=== PATIENT | male | born 1965 | race Hispanic/Latino ===

== ENCOUNTER 2017-07-18 12:41 | Emergency (ER) | payer OTHER ==
[2017-07-18 13:04] VITALS: BMI 30.1
[2017-07-18 13:28] VITALS: RESP 18; O2SAT 98
--- NOTE | 2017-07-18 13:30 | ED PDOC ---
Arrival/HPI <Katelynn Thompson - Last Filed: 07/18/17 17:11> <Vijay Messina DO - Last Filed: 07/18/17 21:48> - General Chief Complaint: High Blood Sugar Time Seen by Provider: 07/18/17 12:43 - History of Present Illness Narrative History of Present Illness (Text): 07/18/17 13:28 Patient is a 52 year old male with a past medical history of HTN, arthritis, anxiety, and depression, who presents to the ER complaining of hyperglycemia since last (7 days). Patient says he has been feeling irritable and fatigued since last week so his friend, who is a known diabetic, told him to check his blood sugar with his friends machine. Patient says it was 549 and he documented this along with all the other levels he has had since then. Patient says he was taking his sugar either before eating or 2 hours after and found that is was running anywhere between 300-500. Patient says his father and grandmother were diabetics and used insulin, so he is worried he might have it too. Of note, he saw his PCP in April of this year and was told his sugar was high so he needed to make dietary modifications. Patient says he "cut out some sugary foods" after that. Patient started taking some of his friend's diabetic medications, which he says are pills, but he does not know the name of them. Patient admits to associated chest pain radiating to his left shoulder that he has had on and off for 2 weeks, as well as frontal headache, occasional SOB, nausea, polydipsia, polyuria, dizziness, and blurry vision. PCP: no longer has one due to insurance reasons and his doctor left [facility] PMH: HTN, Arthritis, Depression, Anxiety Meds: - Xanax 0.5 mg once daily as needed - Lisinopril 20 mg once daily - HCTZ 25 mg once daily Allergies: NKDA PSH: denies FH: father and grandmother with IDDM, mother with HTN SH: smokes 1 PPD >40 years, social alcohol use, denies elicit drug use; works as a carpenter helper hardwood flooring (Katelynn Thompson) Family/Social History Family/Social History: Diabetes, Hypertension <Katelynn Thompson - Last Filed: 07/18/17 17:11> Allergies/Home Meds <Katelynn Thompson - Last Filed: 07/18/17 17:11> <Vijay Messina DO - Last Filed: 07/18/17 21:48> Allergies/Adverse Reactions: Allergies No Known Allergies Allergy (Verified 07/18/17 13:03) Review of Systems - Physician Review All systems were reviewed & negative as marked: Yes - Review of Systems Constitutional: Fatigue. absent: Fevers Eyes: Vision Changes (blurry vision) ENT: absent: Hearing Changes, Tinnitus Respiratory: SOB. absent: Cough, Sputum, Wheezing Cardiovascular: Chest Pain. absent: Palpitations, Edema, Syncope Gastrointestinal: Nausea. absent: Abdominal Pain, Constipation, Diarrhea, Vomiting Genitourinary Male: Frequency. absent: Dysuria, Hematuria Musculoskeletal: Arthralgias (history of arthritis) Skin: absent: Rash Neurological: Headache (frontal), Dizziness Endocrine: Polyuria, Polydipsia. absent: Diaphoresis Psychiatric: Anxiety (h/o), Depression (h/o) <Katelynn Thompson - Last Filed: 07/18/17 17:11> Physical Exam Vital Signs Reviewed: Yes Temperature: Afebrile Blood Pressure: Normal Pulse: Regular Respiratory Rate: Normal Appearance: Positive for: Well-Appearing, Non-Toxic, Comfortable, Other ( fatigued) Pain Distress: None Mental Status: Positive for: Alert and Oriented X 3 Finger Stick Blood Glucose: 395 - Systems Exam Head: Present: Atraumatic, Normocephalic Pupils: Present: PERRL Extroacular Muscles: Present: EOMI Conjunctiva: Present: Normal Mouth: Present: Moist Mucous Membranes Neck: Present: Normal Range of Motion. No: JVD Respiratory/Chest: Present: Clear to Auscultation, Good Air Exchange. No: Respiratory Distress, Accessory Muscle Use Cardiovascular: Present: Regular Rate and Rhythm, Normal S1, S2. No: Murmurs, Rub, Gallop Abdomen: Present: Normal Bowel Sounds. No: Tenderness, Distention, Peritoneal Signs Upper Extremity: Present: Normal Inspection, Neurovascularly Intact. No: Cyanosis, Edema Lower Extremity: Present: Normal Inspection, Neurovascularly Intact. No: Edema , CALF TENDERNESS Neurological: Present: GCS=15, Speech Normal Skin: Present: Warm, Dry, Normal Color. No: Rashes Psychiatric: Present: Alert, Oriented x 3, Normal Insight, Normal Concentration <Katelynn Thompson - Last Filed: 07/18/17 17:11> Vital Signs Temp Pulse Resp BP Pulse Ox 07/18/17 17:00 98 F 72 18 139/89 98 07/18/17 16:14 76 18 118/69 98 07/18/17 13:27 97.5 F L 83 18 128/70 98 Medical Decision Making <Katelynn Thompson - Last Filed: 07/18/17 17:11> <Vijay Messina DO - Last Filed: 07/18/17 21:48> ED Course and Treatment: 07/18/17 13:54 Plan: -CBC, CMP -ECG -Cardiac Enzymes -CXR -VBG -UA -NS 500 cc bolus -Reassess and disposition Plan discussed with Dr. Messina 07/18/17 13:56 EKG: NSR @79 bpm, RBBB 07/18/17 13:59 CXR: normal chest XR as read by me; will follow up official read 07/18/17 17:11 Patient not in DKA. Will send home with prescription for Metformin 500 mg daily with instruction to follow up with PCP. (Katelynn Thompson) - Lab Interpretations Lab Results: 07/18/17 14:17 07/18/17 14:17 Lab Results 07/18/17 16:35: POC Glucose (mg/dL) 379 H 07/18/17 14:34: Urine Color Yellow, Urine Appearance Clear, Urine pH 6.0, Ur Specific [place] 1.010, Urine Protein Negative, Urine Glucose (UA) >=1000, Urine Ketones 40 H, Urine Blood Negative, Urine Nitrate Negative, Urine Bilirubin Negative, Urine Urobilinogen 0.2, Ur Leukocyte Esterase Negative 07/18/17 14:17: Sodium 134, Chloride 95 L, Potassium 3.6, Carbon Dioxide 21, Anion Gap 22 H, BUN 31 H, Creatinine 1.1, Est GFR ( Amer) > 60, Est GFR ( Non-Af Amer) > 60, Random Glucose 474 H*, Calcium 9.9, Total Bilirubin 0.8, AST 15 L, ALT 35, Alkaline Phosphatase 111, Lactate Dehydrogenase 257 L, Total Creatine Kinase 39, Troponin I < 0.01, Total Protein 6.8, Albumin 4.2, Globulin 2.6, Albumin/Globulin Ratio 1.7 07/18/17 14:17: WBC 9.2, RBC 4.42, Hgb 14.1, Hct 39.2 L, MCV 88.7, MCH 31.9, MCHC 36.0, RDW 12.5, Plt Count 282, MPV 10.3, Gran % 70.5 H, Lymph % (Auto) 18.0 L, [place] % (Auto) 10.5 H, Eos % (Auto) 0.9 L, Baso % (Auto) 0.1, Gran # 6.51 H, Lymph # (Auto) 1.7, [place] # (Auto) 1.0 H, Eos # (Auto) 0.1, Baso # (Auto ) 0.01 07/18/17 14:17: pO2 92 H, VBG pH 7.43, VBG pCO2 33.0 L, VBG HCO3 21.9, VBG Total CO2 22.9, VBG O2 Sat (Calc) 99.0 H, VBG Base Excess -1.7 L, VBG Potassium 3.5 L, Sodium 132.0, Chloride 96.0 L, Glucose 508 H*, Lactate 1.1, FiO2 21.0, Venous Blood Potassium 3.5 L 07/18/17 12:58: POC Glucose (mg/dL) 394 H - RAD Interpretation Radiology Orders: 07/18/17 13:18 CHEST PORTABLE [RAD] Stat - Medication Orders Current Medication Orders: Discontinued Medications Sodium Chloride (Sodium Chloride 0.9%) 500 mls @ 999 mls/hr IV .Q31M STA Stop: 07/18/17 14:01 Last Admin: 07/18/17 14:15 Dose: 999 mls/hr eMAR Start Stop Document 07/18/17 14:15 [facility] (Rec: 07/18/17 14:15 [facility]-[id number]) Intravenous Solution Start Date 07/18/17 Start Time 14:15 End Date 07/18/17 End time 15:15 Total Infusion Time 60 Sodium Chloride (Sodium Chloride 0.9%) 1,000 mls @ 250 mls/hr IV .Q4H ONE Stop: 07/18/17 18:12 Last Admin: 07/18/17 15:12 Dose: 250 mls/hr eMAR Start Stop Document 07/18/17 15:12 [facility] (Rec: 07/18/17 15:12 [facility] [id number]) Intravenous Solution Start Date 07/18/17 Start Time 15:12 Metformin HCl (Glucophage) 500 mg PO STAT STA Stop: 07/18/17 14:40 Last Admin: 07/18/17 15:12 Dose: 500 mg - PA / PROPOSAL COORDINATOR / Resident Statement / has reviewed & agrees with the documentation as recorded. / has examined the patient and agrees with the treatment plan. <Katelynn Thompson - Last Filed: 07/18/17 17:11> Disposition/Present on Arrival - Present on Arrival Any Indicators Present on Arrival: No - Disposition Have Diagnosis and Disposition been Completed?: Yes Disposition Time: 17:12 <Katelynn Thompson - Last Filed: 07/18/17 17:11> - Disposition Disposition Time: 15:00 <Vijay Messina DO - Last Filed: 07/18/17 21:48> - Disposition Diagnosis: Hyperglycemia Disposition: HOME/ ROUTINE Condition: IMPROVED Discharge Instructions (ExitCare): Hyperglycemia, Adult, The ABCs of Diabetes, Diabetes and Diet Additional Instructions: Thank you for letting us take care of you today. The emergency medical care you received today was directed at your acute symptoms. If you were prescribed any medication, please fill it and take as directed. It may take several days for your symptoms to resolve. Return to the Emergency Department if your symptoms worsen, do not improve, or if you have any other problems. Please contact your doctor or call one of the physicians/clinics you have been referred to that are listed on the Patient Visit Information form that is included in your discharge packet. Bring any paperwork you were given at discharge with you along with any medications you are taking to your follow up visit. Our treatment cannot replace ongoing medical care by a primary care provider (PCP) outside of the emergency department. Thank you for allowing the [facility] team to be part of your care today. Follow up with your primary care doctor or our clinic in 2-3 days for re- evaluation and further management. Prescriptions: metFORMIN [glucOPHAGE] 500 mg PO BID #14 tab Referrals: PCP,NO [Primary Care Provider] - Follow up with primary Forms: No Chains (Spanish)
[2017-07-18] MEDS ORDERED: Sodium Chloride 0.9% 500 ML IV STA (13:31)
--- NOTE | 2017-07-18 14:03 | RAD ---
HISTORY: chest pain COMPARISON: None available FINDINGS: LUNGS: No active pulmonary disease. PLEURA: No significant pleural effusion identified, no pneumothorax apparent. CARDIOVASCULAR: Normal. OSSEOUS STRUCTURES: No significant abnormalities. VISUALIZED UPPER ABDOMEN: Normal. OTHER FINDINGS: None. IMPRESSION: No active disease.
[2017-07-18] MEDS ORDERED: Sodium Chloride 0.9% 1,000 ML IV ONE (14:13)
[2017-07-18 14:21] LABS: VENOUS BLOOD GAS BASE EXCESS -1.7 mmol/L (0.0-2.0); VENOUS BLOOD GAS PO2 92 mm/Hg (30-55); VENOUS BLOOD PH 7.43 (7.32-7.43)
[2017-07-18 14:23] LABS: BASO # 0.01 K/mm3 (0.0-2.0); BASO % 0.1 % (0.0-3.0); EOS # 0.1 (0.0-0.7); EOS % 0.9 % (1.5-5.0); GRAN # 6.51 (1.4-6.5); GRAN % 70.5 % (50.0-68.0); HEMOGLOBIN 14.1 g/dL (14.0-18.0); LYMPH # 1.7 (1.2-3.4); MEAN CELL VOLUME 88.7 fl (80.0-105.0); MEAN CORPUSCULAR HEMOGLOBIN 31.9 pg (25.0-35.0); MEAN PLATELET VOLUME 10.3 fl (7.0-11.0); MONO % 10.5 % (1.0-6.0); RBC 4.42 10^6/uL (3.5-6.1); RED CELL DISTRIBUTION WIDTH 12.5 % (11.5-14.5); WHITE BLOOD COUNT 9.2 10^3/ul (4.5-11.0)
[2017-07-18 14:41] LABS: ALB/GLOB RATIO 1.7 (1.1-1.8); ALBUMIN 4.2 g/dL (3.0-4.8); ALT/SGPT 35 U/L (7-56); AST/SGOT 15 U/L (17-59); BLOOD UREA NITROGEN 31 mg/dL (7-21); CALCIUM 9.9 mg/dL (8.4-10.5); GFR AFRICAN-AMERICAN > 60; GFR NON-AFRICAN AMERICAN > 60
[2017-07-18 14:44] LABS: TROPONIN I < 0.01 ng/mL
[2017-07-18 15:01] LABS: URINE BILIRUBIN NEGATIVE (NEGATIVE); URINE BLOOD NEGATIVE (NEGATIVE); URINE GLUCOSE (UA) >=1000 mg/dL (NEGATIVE); URINE LEUKOCYTE ESTERASE NEGATIVE Leu/uL (NEGATIVE); URINE PROTEIN NEGATIVE mg/dL (<30 mg/dL); URINE UROBILINOGEN 0.2 E.U./dL (<1 E.U./dL)
[2017-07-18 15:04] LABS: URINE APPEARANCE CLEAR (CLEAR); URINE COLOR YELLOW (YELLOW)
[2017-07-18 17:32] VITALS: BP 139/89; PULSE 72; TEMP 98
--- NOTE | 2017-07-18 22:35 | CARD ---
APPROVED REPORT EKG Measurement Heart [id number] <Conclusion> Normal sinus rhythm Right bundle branch block Abnormal ECG
== END 2017-07-18 17:05 | disposition home or self-care (01) ==
LOC: ED 12:41
DX: R73.9 Hyperglycemia, unspecified (principal); I10 Essential (primary) hypertension; M19.90 Unspecified osteoarthritis, unspecified site; F17.210 Nicotine dependence, cigarettes, uncomplicated
CPT/HCPCS: 71045; 80053; 81003; 82550; 82803; 82948; 83036; 83615; 84484; 85025; 93005; 96360; 99284; J7030; J7040

== ENCOUNTER 2017-12-13 20:58 | Emergency (ER) | payer OTHER ==
[2017-12-13 20:58] VITALS: BMI 30.1
--- NOTE | 2017-12-13 22:39 | ED PDOC ---
Arrival/HPI - General Chief Complaint: Psychiatric Evaluation Time Seen by Provider: 12/13/17 21:37 Historian: Patient - History of Present Illness Narrative History of Present Illness (Text): 12/13/17 22:39 Wilian Duff is a 52 year old male, whose past medical history includes hypertension, arthritis, anxiety, and depression, who presents to the Emergency department for depression. Patient states he has been feeling increasingly depressed over the past few weeks. Patient reports suicidal ideation, states he wants to kill himself and admits to taking 6-7 Xanax tablets tonight. Patient also admits to drinking alcohol tonight. Patient denies any homicidal ideation, fever, chills, chest pain, shortness of breath, nausea, vomiting, diarrhea, urinary symptoms, back pain, neck pain, headache, dizziness, or any other complaints. Symptom Onset: Gradual Symptom Course: Unchanged Activities at Onset: Light Context: Home Past Medical History - Provider Review Nursing Documentation Reviewed: Yes - Infectious Disease Hx of Infectious Diseases: None - Cardiac Hx Cardiac Disorders: Yes Hx Hypertension: Yes - Musculoskeletal/Rheumatological Hx Musculoskeletal Disorders: Yes Hx Arthritis: Yes - Psychiatric Hx Psychophysiologic Disorder: Yes Hx Anxiety: Yes Hx Depression: Yes Hx Substance Use: No - Anesthesia Hx Anesthesia: No Family/Social History - Physician Review Nursing Documentation Reviewed: Yes Family/Social History: Unknown Family HX Smoking Status: Heavy Smoker > 10 Cigarettes Daily Hx Alcohol Use: Yes Hx Substance Use: No Allergies/Home Meds Allergies/Adverse Reactions: Allergies No Known Allergies Allergy (Verified 12/13/17 21:11) Review of Systems - Physician Review All systems were reviewed & negative as marked: Yes - Review of Systems Constitutional: Normal. absent: Fevers Eyes: Normal ENT: Normal Respiratory: Normal. absent: SOB, Cough Cardiovascular: Normal. absent: Chest Pain Gastrointestinal: Normal. absent: Abdominal Pain, Diarrhea, Nausea, Vomiting Genitourinary Male: Normal. absent: Dysuria, Frequency, Hematuria, Urinary Output Changes Musculoskeletal: Normal. absent: Back Pain, Neck Pain Skin: Normal. absent: Rash Neurological: Normal. absent: Headache, Dizziness Endocrine: Normal Hemo/Lymphatic: Normal Psychiatric: Depression, Suicidal Ideation Physical Exam Vital Signs Reviewed: Yes Vital Signs Temp Pulse Resp BP Pulse Ox 12/13/17 21:10 98 F 89 20 169/93 H 96 Temperature: Afebrile Blood Pressure: Normal Pulse: Regular Respiratory Rate: Normal Appearance: Positive for: Well-Appearing, Non-Toxic Mental Status: Positive for: other (Drowsy but easily arousable) - Systems Exam Head: Present: Atraumatic, Normocephalic Pupils: Present: PERRL Extroacular Muscles: Present: EOMI Conjunctiva: Present: Normal Mouth: Present: Moist Mucous Membranes Neck: Present: Normal Range of Motion Respiratory/Chest: Present: Clear to Auscultation, Good Air Exchange. No: Respiratory Distress, Accessory Muscle Use Cardiovascular: Present: Regular Rate and Rhythm, Normal S1, S2. No: Murmurs Abdomen: No: Tenderness, Distention, Peritoneal Signs Back: Present: Normal Inspection Upper Extremity: Present: Normal Inspection. No: Cyanosis, Edema Lower Extremity: Present: Normal Inspection. No: Edema Neurological: Present: GCS=15, CN II-XII Intact, Speech Normal Skin: Present: Warm, Dry, Normal Color. No: Rashes Psychiatric: Present: Depressed Mood, Other (Drowsy but easily arousable) Medical Decision Making ED Course and Treatment: 12/13/17 21:55 Impression: 52 year old male complaining of depression and suicidal ideation. Plan: -- EKG -- Chest X-ray -- Labs, alcohol level -- Urine drug screen -- Reassess and disposition Prior Visits: Notes and results from previous visits were reviewed. Progress Notes: Reviewed EKG, NSR at 96 bpm. RBBB. Inferior infarct. Non-specific ST/T wave changes. 12/14/17 00:19 Chest X-ray reviewed, shows no acute processes. 12/14/17 05:30 Attempt to interview patient by PES unsuccessful at the time as patient refused wanting to sleep. 12/14/17 07:[address] Parra, pending PES evaluation, reassessment, and disposition - Lab Interpretations I have reviewed the lab results: Yes - RAD Interpretation Radiology Orders: 12/13/17 21:58 CHEST PORTABLE [RAD] Stat Supplier Manager: ED Physician - EKG Interpretation Interpreted by ED Physician: Yes Type: 12 lead EKG - Scribe Statement The provider has reviewed the documentation as recorded by the Saad Samayoa Provider Scribe Attestation: All medical record entries made by the Scribe were at my direction and personally dictated by me. I have reviewed the chart and agree that the record accurately reflects my personal performance of the history, physical exam, medical decision making, and the department course for this patient. I have also personally directed, reviewed, and agree with the discharge instructions and disposition. Disposition/Present on Arrival - Present on Arrival Any Indicators Present on Arrival: No History of DVT/PE: No History of Uncontrolled Diabetes: No Urinary Catheter: No History of Decub. Ulcer: No History Surgical Site Infection Following: None - Disposition Have Diagnosis and Disposition been Completed?: No Diagnosis: Depression, Drug overdose Disposition Time: 07:00 Condition: STABLE Forms: [employer] (Turkmen)
[2017-12-13 23:25] LABS: ACETAMINOPHEN < 10.0 ug/ml (10.0-20.0); SALICYLATE < 1 mg/dL (2.0-20.0)
[2017-12-13 23:26] LABS: ALB/GLOB RATIO 1.6 (1.1-1.8); ALBUMIN 4.6 g/dL (3.0-4.8); ALT/SGPT 22 U/L (7-56); AST/SGOT 23 U/L (17-59); BLOOD UREA NITROGEN 25 mg/dL (7-21); CALCIUM 9.5 mg/dL (8.4-10.5); GFR NON-AFRICAN AMERICAN > 60
[2017-12-13 23:33] LABS: HEMOGLOBIN 14.2 g/dL (14.0-18.0); MEAN CELL VOLUME 90.6 fl (80.0-105.0); MEAN CORPUSCULAR HEMOGLOBIN 31.8 pg (25.0-35.0); MEAN CORPUSCULAR HGB CONC 35.1 g/dl (31.0-37.0); RBC 4.46 10^6/uL (3.5-6.1); WHITE BLOOD COUNT 13.6 10^3/uL (4.5-11.0)
--- NOTE | 2017-12-14 05:54 | RAD ---
Date of service: 12/13/2017 HISTORY: medical clearance COMPARISON: 07/18/2017. FINDINGS: LUNGS: The lungs are well inflated and clear. PLEURA: No pleural effusions or pneumothorax. CARDIOVASCULAR: The heart is normal in size. No aortic atherosclerotic calcification present. OSSEOUS STRUCTURES: Within normal limits for the patient's age. VISUALIZED UPPER ABDOMEN: Normal. OTHER FINDINGS: None. IMPRESSION: No active pulmonary disease.
[2017-12-14 06:58] LABS: BARBITURATES, UR NEGATIVE (NEGATIVE); BENZODIAZEPINES, UR POSITIVE (NEGATIVE); OPIATES, UR NEGATIVE (NEGATIVE); PHENCYCLIDINE, UR NEGATIVE (NEGATIVE)
--- NOTE | 2017-12-14 10:25 | RAD ---
Date of service: 12/14/2017 HISTORY: pes eval COMPARISON: 12/13/2017. FINDINGS: LUNGS: The lungs are well inflated and clear. PLEURA: No pleural effusions or pneumothorax. CARDIOVASCULAR: The heart is normal in size. No aortic atherosclerotic calcification present. OSSEOUS STRUCTURES: Within normal limits for the patient's age. VISUALIZED UPPER ABDOMEN: Normal. OTHER FINDINGS: None. IMPRESSION: No active pulmonary disease.
--- NOTE | 2017-12-14 10:40 | CARD ---
APPROVED REPORT Date of service: 12/13/2017 EKG Measurement Heart [id number] <Conclusion> Normal sinus rhythm Right bundle branch block Inferior infarct, old No change
--- NOTE | 2017-12-14 11:02 | ED PDOC ---
Physical Exam Vital Signs Temp Pulse Resp BP Pulse Ox 12/14/17 09:45 98 F 86 19 130/85 97 12/14/17 03:11 91 H 18 107/66 97 12/13/17 21:10 98 F 89 20 169/93 H 96 Medical Decision Making ED Course and Treatment: 12/14/17 07:02 Case endorsed to me by Dr. Ahumada. Currently pending PES evaluation, reassessment, and disposition. 12/14/17 11:01 Patient is medically cleared. 12/15/17 07:21 pt enorsed to fast food shift supervisor pending [facility] [place] pt observed numerous times ambulatory steady gait taking po in nad. 12/15/17 07:21 - Lab Interpretations Lab Results: 12/13/17 23:09 12/13/17 23:08 Lab Results 12/14/17 04:19: Urine Opiates Screen Negative, Urine Methadone Screen Negative, Ur Barbiturates Screen Negative, Ur Phencyclidine Scrn Negative, Ur Amphetamines Screen Negative, U Benzodiazepines Scrn Positive H, U Oth Cocaine Metabols Positive H, U Cannabinoids Screen Negative 12/13/17 23:09: WBC 13.6 H D, RBC 4.46, Hgb 14.2, Hct 40.4 L, MCV 90.6, MCH 31.8, MCHC 35.1, RDW 14.0, Plt Count 336, MPV 10.0 12/13/17 23:08: Salicylates < 1 L, Acetaminophen < 10.0 L 12/13/17 23:08: Alcohol, Quantitative 130 H 12/13/17 23:08: Sodium 143, Potassium 3.4 L, Chloride 105, Carbon Dioxide 20 L, Anion Gap 21 H, BUN 25 H, Creatinine 1.2, Est GFR ( Amer) > 60, Est GFR (Non-Af Amer) > 60, Random Glucose 109, Calcium 9.5, Total Bilirubin 0.3, AST 23, ALT 22, Alkaline Phosphatase 77, Total Protein 7.4, Albumin 4.6, Globulin 2.9, Albumin/Globulin Ratio 1.6 - RAD Interpretation Radiology Orders: 12/13/17 21:58 CHEST PORTABLE [RAD] Stat 12/14/17 10:03 CXR [CHEST PORTABLE] [RAD] Stat - Scribe Statement The provider has reviewed the documentation as recorded by the Scribe Rinku Singhdi Provider Scribe Attestation: All medical record entries made by the Ayakaibkoby were at my direction and personally dictated by me. I have reviewed the chart and agree that the record accurately reflects my personal performance of the history, physical exam, medical decision making, and the department course for this patient. I have also personally directed, reviewed, and agree with the discharge instructions and disposition. Disposition/Present on Arrival - Present on Arrival Any Indicators Present on Arrival: No History of DVT/PE: No History of Uncontrolled Diabetes: No Urinary Catheter: No History of Decub. Ulcer: No History Surgical Site Infection Following: None - Disposition Have Diagnosis and Disposition been Completed?: Yes Diagnosis: Depression, Drug overdose Disposition: Transfer [facility] [place]position Time: 19:00 Condition: STABLE Forms: [employer] (Slovenian)
[2017-12-14 11:41] LABS: PH,URINE 5.5 (4.7-8.0); URINE BILIRUBIN NEGATIVE (NEGATIVE); URINE BLOOD LARGE (NEGATIVE); URINE GLUCOSE (UA) NEGATIVE (NEGATIVE); URINE LEUKOCYTE ESTERASE NEGATIVE Leu/uL (NEGATIVE); URINE PROTEIN 30 mg/dL (<30 mg/dL); URINE UROBILINOGEN 0.2 E.U./dL (<1 E.U./dL)
[2017-12-14 11:43] LABS: URINE APPEARANCE SL CLOUDY (CLEAR); URINE COLOR YELLOW (YELLOW)
[2017-12-14 12:13] LABS: URINE RBC TNTC /hpf (0-2)
[2017-12-14 18:01] LABS: URINE BILIRUBIN NEGATIVE (NEGATIVE); URINE BLOOD SMALL (NEGATIVE); URINE GLUCOSE (UA) NEGATIVE (NEGATIVE); URINE LEUKOCYTE ESTERASE NEGATIVE Leu/uL (NEGATIVE); URINE PROTEIN TRACE mg/dL (<30 mg/dL); URINE UROBILINOGEN 0.2 E.U./dL (<1 E.U./dL)
[2017-12-14 18:02] LABS: URINE APPEARANCE CLEAR (CLEAR); URINE COLOR YELLOW (YELLOW)
[2017-12-14 18:08] LABS: URINE WBC 0 - 2 /hpf (0-6)
[2017-12-14 18:09] LABS: URINE BACTERIA NEG (NEG)
--- NOTE | 2017-12-14 19:26 | ED PDOC ---
Physical Exam Vital Signs Temp Pulse Resp BP Pulse Ox 12/14/17 19:13 98 F 75 19 125/53 L 78 L 12/14/17 17:17 82 132/53 L 12/14/17 16:08 98 F 85 19 132/53 L 98 12/14/17 14:04 97.5 F L 75 12/14/17 09:45 98 F 86 19 130/85 97 12/14/17 03:11 91 H 18 107/66 97 12/13/17 21:10 98 F 89 20 169/93 H 96 Medical Decision Making ED Course and Treatment: 12/14/17 19:25 Signout received pending PES evaluation, psychiatric evaluation and disposition. 12/14/17 21:39 Patient evaluated by [facility] screener and has been deemed to be committed in voluntarily. Patient noted to become belligerent and aggressive towards staff. Virgie Galindo called. Restraints ordered. 12/14/17 22:17 Patient noted to be calm and not combative towards staff. Restraints canceled. 12/15/17 00:35 Patient attempted to leave ER. Virgie Pham called. Patient sedated and restrained for the safety of himself and the staff. 12/15/17 02:38 PES worker confirms bed for patient at [facility]. Will arrange for patient transport via ambulance. Transfer papers beig arranged. - Lab Interpretations Lab Results: 12/13/17 23:09 12/13/17 23:08 Lab Results 12/14/17 17:38: Urine Color Yellow, Urine Appearance Clear, Urine pH 6.0, Ur Specific [place] 1.025, Urine Protein Trace H, Urine Glucose (UA) Negative, [place] Ketones Trace H, Urine Blood Small H, Urine Nitrate Negative, Urine Bilirubin Negative, Urine Urobilinogen 0.2, Ur Leukocyte Esterase Negative, Urine RBC 1 - 3, Urine WBC 0 - 2, Ur Epithelial Cells None, Urine Bacteria Neg 12/14/17 11:00: Urine Color Yellow, Urine Appearance Sl cloudy, Urine pH 5.5, Ur Specific [place] >= 1.030, Urine Protein 30 H, Urine Glucose (UA) Negative, Urine Ketones Negative, Urine Blood Large H, Urine Nitrate Negative, Urine Bilirubin Negative, Urine Urobilinogen 0.2, Ur Leukocyte Esterase Negative, Urine RBC Tntc, Urine WBC 2 - 5, Ur Epithelial Cells None 12/14/17 04:19: Urine Opiates Screen Negative, Urine Methadone Screen Negative, Ur Barbiturates Screen Negative, Ur Phencyclidine Scrn Negative, Ur Amphetamines Screen Negative, U Benzodiazepines Scrn Positive H, U Oth Cocaine Metabols Positive H, U Cannabinoids Screen Negative 12/13/17 23:09: WBC 13.6 H D, RBC 4.46, Hgb 14.2, Hct 40.4 L, MCV 90.6, MCH 31.8, MCHC 35.1, RDW 14.0, Plt Count 336, MPV 10.0 12/13/17 23:08: Salicylates < 1 L, Acetaminophen < 10.0 L 12/13/17 23:08: Alcohol, Quantitative 130 H 12/13/17 23:08: Sodium 143, Potassium 3.4 L, Chloride 105, Carbon Dioxide 20 L, Anion Gap 21 H, BUN 25 H, Creatinine 1.2, Est GFR ( Amer) > 60, Est GFR (Non-Af Amer) > 60, Random Glucose 109, Calcium 9.5, Total Bilirubin 0.3, AST 23, ALT 22, Alkaline Phosphatase 77, Total Protein 7.4, Albumin 4.6, Globulin 2.9, Albumin/Globulin Ratio 1.6 - RAD Interpretation Radiology Orders: 12/13/17 21:58 CHEST PORTABLE [RAD] Stat 12/14/17 10:03 CXR [CHEST PORTABLE] [RAD] Stat - Medication Orders Current Medication Orders: Discontinued Medications Lisinopril (Zestril) 5 mg PO STAT STA Stop: 12/14/17 16:57 Last Admin: 12/14/17 17:17 Dose: 5 mg MAR Pulse and Blood Pressure Document 12/14/17 17:17 [facility] (Rec: 12/14/17 17:17 [facility] [id number]) Pulse Pulse Rate (60-90) 82 Blood Pressure Blood Pressure (100/60-150/90) 132/53 Lorazepam (Ativan) 1 mg PO STAT STA Stop: 12/14/17 15:19 Last Admin: 12/14/17 16:01 Dose: 1 mg Disposition/Present on Arrival - Present on Arrival Any Indicators Present on Arrival: No History of DVT/PE: No History of Uncontrolled Diabetes: No Urinary Catheter: No History of Decub. Ulcer: No History Surgical Site Infection Following: None - Disposition Have Diagnosis and Disposition been Completed?: Yes Diagnosis: Depression, Drug overdose Disposition: Transfer [facility] [place]position Time: 02:39 Patient Plan: Transfer To Patient Problems: Current Active Problems Problem Status Onset Depression Acute Drug overdose Acute Condition: STABLE Forms: [employer] ([place])
[2017-12-15 03:52] VITALS: BP 128/79; PULSE 72; RESP 18; TEMP 98.1; O2SAT 100
== END 2017-12-15 04:10 | disposition short-term general hospital (02) ==
LOC: ED 20:58
DX: F32.9 Major depressive disorder, single episode, unspecified (principal); T42.4X2A Poisoning by benzodiazepines, intentional self-harm, initial encounter; Y92.9 Unspecified place or not applicable; I10 Essential (primary) hypertension; F41.9 Anxiety disorder, unspecified; F17.210 Nicotine dependence, cigarettes, uncomplicated
CPT/HCPCS: 71045; 80053; 80320; 80324; 80329; 80345; 80346; 80349; 80353; 80358; 80361; 81001; 82948; 83992; 85027; 90791; 93005; 96372; 99285; J1630; J2060

== ENCOUNTER 2018-03-15 07:44 | Outpatient (CLI) | payer OTHER, MEDICAID | END 2018-03-15 07:45 | disposition home or self-care (01) | LOC: LAB 07:44 ==

== ENCOUNTER 2018-07-15 14:24 | Observation (INO) | payer MEDICAID ==
[2018-07-15 14:30] VITALS: BMI 31.5
[2018-07-15] MEDS ORDERED: Sodium Chloride 0.9% 500 ML IV STA (15:22)
--- NOTE | 2018-07-15 15:25 | ED PDOC ---
Arrival/HPI - General Time Seen by Provider: 07/15/18 14:57 Historian: Patient - History of Present Illness Narrative History of Present Illness (Text): 07/15/18 14:57 Patient is a 53 year old male smoker, with a past medical history of hypertension and DM and tobacco use, who presents to the emergency department complaining of non-radiating left sided chest pain since 11:00 this morning. Patient describes chest pain as sharp and informs it is worsened with breathing. Patient also notes dizziness and states he feels like he is going to "pass out". Also informs of cough. Patient denies fevers, chills, headache, shortness of breath, abdominal pain, nausea, vomiting, diarrhea, dysuria, hematuria, back pain, neck pain, recent long travel in plane / car, or any other complaints. 07/15/18 16:22 07/15/18 16:22 Time/Duration: Other (11:00 AM) Symptom Onset: Sudden Activities at Onset: Light Context: Home Past Medical History - Provider Review Nursing Documentation Reviewed: Yes - Infectious Disease Hx of Infectious Diseases: None - Cardiac Hx Cardiac Disorders: Yes Hx Hypertension: Yes - Musculoskeletal/Rheumatological Hx Musculoskeletal Disorders: Yes Hx Arthritis: Yes - Psychiatric Hx Psychophysiologic Disorder: Yes Hx Anxiety: Yes Hx Depression: Yes Hx Substance Use: No - Anesthesia Hx Anesthesia: No Family/Social History - Physician Review Nursing Documentation Reviewed: Yes Family/Social History: Unknown Family HX Smoking Status: Heavy Smoker > 10 Cigarettes Daily Hx Alcohol Use: Yes Hx Substance Use: No Allergies/Home Meds Allergies/Adverse Reactions: Allergies No Known Allergies Allergy (Verified 12/13/17 21:11) Home Medications: Home Meds Medication Instructions Recorded Confirmed Acetaminophen [Tylenol] 325 mg PO Q6 PRN 07/15/18 07/15/18 Cyanocobalamin [Vitamin B12 1000 1,000 mcg PO DAILY 07/15/18 07/15/18 mcg Tab] Gabapentin [Neurontin] 300 mg PO TID 07/15/18 07/15/18 Lorazepam [Ativan] 0.5 mg PO TID PRN 07/15/18 07/15/18 Sertraline [Zoloft] 100 mg PO DAILY 07/15/18 07/15/18 hydroCHLOROthiazide [Hydrodiuril] 25 mg PO BID 07/15/18 07/15/18 lamoTRIgine [LaMICtal] 100 mg PO DAILY 07/15/18 07/15/18 metFORMIN [glucOPHAGE] 500 mg PO DAILY 07/15/18 traZODone [trazODONE HYDROCHLORIDE] 50 mg PO HS 07/15/18 07/15/18 Review of Systems - Review of Systems Constitutional: absent: Fevers, Other (chills) Respiratory: absent: SOB, Cough, Sputum Cardiovascular: Chest Pain (left sided, sharp). absent: Palpitations, Edema, Calf Pain, SHEN, Orthopnea, Syncope Gastrointestinal: absent: Abdominal Pain, Diarrhea, Nausea, Vomiting Genitourinary Male: absent: Dysuria, Hematuria Musculoskeletal: absent: Back Pain, Neck Pain Neurological: Dizziness. absent: Headache, Focal Weakness, Gait Changes, Speech Changes, Facial Droop Psychiatric: absent: Anxiety, Depression Physical Exam Temperature: Afebrile Blood Pressure: Normal Pulse: Regular Respiratory Rate: Normal Appearance: Positive for: Well-Appearing, Non-Toxic, Comfortable Pain Distress: None Mental Status: Positive for: Alert and Oriented X 3 - Systems Exam Head: Present: Atraumatic, Normocephalic Pupils: Present: PERRL Extroacular Muscles: Present: EOMI Conjunctiva: Present: Normal Mouth: Present: Moist Mucous Membranes Neck: Present: Normal Range of Motion Respiratory/Chest: Present: Clear to Auscultation, Good Air Exchange. No: Respiratory Distress, Accessory Muscle Use, Wheezes, Rales, Rhonchi Cardiovascular: Present: Regular Rate and Rhythm, Normal S1, S2. No: Murmurs, Rub, Gallop Abdomen: Present: Normal Bowel Sounds. No: Tenderness, Distention, Peritoneal Signs, Rebound, Guarding Back: Present: Normal Inspection Upper Extremity: Present: Normal Inspection, Normal ROM, Neurovascularly Intact. No: Cyanosis, Edema Lower Extremity: Present: Normal Inspection, Normal ROM, Neurovascularly Intact. No: Edema Neurological: Present: GCS=15, CN II-XII Intact, Speech Normal, Motor Func Grossly Intact, Normal Sensory Function, Gait Normal. No: Other (no nystagmus) Skin: Present: Warm, Dry, Normal Color. No: Rashes Psychiatric: Present: Alert, Oriented x 3, Normal Insight, Normal Concentration Medical Decision Making ED Course and Treatment: 07/15/18 14:57 Impression: Patient is a 53 year old male, with a past medical history of hypertension and DM and tobacco use, who presents to the emergency department complaining of non-radiating left sided chest pain since 11:00 AM Plan: -- Labs -- Chest X-Ray -- Aspirin -- Antivert -- Nitrostat -- Zofran -- IV Fluids -- Reassess and disposition Prior Visits: Notes and results from previous visits were reviewed. Progress Notes: 07/15/18 14:57 EKG shows NSR at 82 BPM. RBBB unchanged from previous 07/15/18 15:00 Heart score = 5 07/15/18 16:19 Patient reports that he feels better after burping. This was at same time as given SL nitro and meclizine. Could be related to gas but due to cardiac risk factors and no prior cardiac evaluation, will observe for cardiac evaluation - RAD Interpretation Radiology Orders: 07/15/18 15:18 CHEST PORTABLE [RAD] Stat - EKG Interpretation Interpreted by ED Physician: Yes Type: 12 lead EKG - Medication Orders Current Medication Orders: Aspirin (Aspirin Chewable) 324 mg PO STAT STA Stop: 07/15/18 15:19 - Scribe Statement The provider has reviewed the documentation as recorded by the Scribe Vijay Cheung All medical record entries made by the Scribe were at my direction and personally dictated by me. I have reviewed the chart and agree that the record accurately reflects my personal performance of the history, physical exam, medical decision making, and the department course for this patient. I have also personally directed, reviewed, and agree with the discharge instructions and disposition. Disposition/Present on Arrival - Present on Arrival Any Indicators Present on Arrival: No History of DVT/PE: No History of Uncontrolled Diabetes: No Urinary Catheter: No History Surgical Site Infection Following: None - Disposition Have Diagnosis and Disposition been Completed?: Yes Diagnosis: Chest pain Disposition: HOSPITALIZED Disposition Time: 16:22 Patient Plan: Observation Patient Problems: Current Active Problems Problem Status Onset Chest pain Acute Condition: FAIR
[2018-07-15 15:41] LABS: BASO # 0.01 K/mm3 (0.0-2.0); BASO % 0.1 % (0.0-3.0); EOS # 0.2 (0.0-0.7); EOS % 1.4 % (1.5-5.0); HEMOGLOBIN 13.6 g/dL (14.0-18.0); LYMPH % 15.3 % (22.0-35.0); MEAN CELL VOLUME 91.9 fl (80.0-105.0); MEAN CORPUSCULAR HEMOGLOBIN 31.6 pg (25.0-35.0); MEAN CORPUSCULAR HGB CONC 34.3 g/dl (31.0-37.0); MEAN PLATELET VOLUME 9.5 fl (7.0-11.0); MONO # 0.9 (0.1-0.6); RBC 4.31 10^6/uL (3.5-6.1); RED CELL DISTRIBUTION WIDTH 13.5 % (11.5-14.5); WHITE BLOOD COUNT 12.8 10^3/uL (4.5-11.0)
[2018-07-15 15:51] LABS: ALB/GLOB RATIO 1.6 (1.1-1.8); ALBUMIN 4.4 g/dL (3.0-4.8); ALT/SGPT 15 U/L (7-56); AST/SGOT 28 U/L (17-59); BLOOD UREA NITROGEN 31 mg/dL (7-21); CALCIUM 9.4 mg/dL (8.4-10.5); GFR NON-AFRICAN AMERICAN > 60
[2018-07-15 16:03] LABS: B-TYPE NATRIURETIC PEPTIDE 26.9 pg/mL (0-450); TROPONIN I < 0.01 ng/mL
--- NOTE | 2018-07-15 16:54 | RAD ---
Date of service: 07/15/2018 HISTORY: chest pain COMPARISON: Chest 12/14/17 TECHNIQUE: 1 view obtained. FINDINGS: LUNGS: No active pulmonary disease. PLEURA: No significant pleural effusion identified, no pneumothorax apparent. CARDIOVASCULAR: No aortic atherosclerotic calcification present. Normal cardiac size. No pulmonary vascular congestion. OSSEOUS STRUCTURES: No significant abnormalities. VISUALIZED UPPER ABDOMEN: Normal. OTHER FINDINGS: None. IMPRESSION: No active disease.
--- NOTE | 2018-07-15 17:35 | CP.PCM.HP ---
<Juvenal Woodruff - Last Filed: 07/15/18 17:18> History of Present Illness - History of Present Illness History of Present Illness: Juvenal Woodruff DO PGY1 H&P for Dr Jhoana Bush: left sided chest pain/ dizziness/ near syncopy 53 y/o male with PMH of HTN, DM2, peripheral neuropathy, depression, arthritis, drug abuse presents to the ED with left sided chest pain x6-8 month. Pain is sharp, intermittent, lasts hours to half day, exacerbated by anxiety/stress, relieved with relaxation/calming down. It is associated with dizziness, blurry vision, near syncope, palpitation, SOB. He denies head trauma, loss of consciousness. Patient reports extensive work up with multiple physicians incl uding neurologist for work up of his symptoms with no diagnosis. Patient denies associated diaphoresis, nausea, vomiting with his symptoms. Patient had a h/o xanax overdose and was transferred to [facility] psych unit for about 10 days in November 2017. He denies changes in bowel movement, urinary symptoms, focal neurological symptoms. 12 points ROS reviewed with pertinent positives as above PMH: HTN, DM2, peripheral neuropathy, depression, arthritis, drug abuse PSH: denies Meds: per EMR All: NKDA FH: mother with HTN, father/ grandmother with DM SH: used to smoke 1 ppd x40 y, now smokes 8 cigarettes/day. used to use cocain. social alcohol use. Lives with a friend PMD: Dr Rehman Pharmacy: [facility] Present on Admission - Present on Admission Any Indicators Present on Admission: No Past Patient History - Infectious Disease Hx of Infectious Diseases: None - Past Social History Smoking Status: Heavy Smoker > 10 Cigarettes Daily - CARDIAC Hx Cardiac Disorders: Yes Hx Hypertension: Yes - PULMONARY Hx Respiratory Disorders: No - NEUROLOGICAL Hx Alzheimer's Disease: No - HEENT Hx HEENT Problems: No - RENAL Hx Chronic Kidney Disease: No - ENDOCRINE/METABOLIC Hx Endocrine Disorders: No - HEMATOLOGICAL/ONCOLOGICAL Hx Blood Disorders: No - INTEGUMENTARY Hx Dermatological Problems: No - MUSCULOSKELETAL/RHEUMATOLOGICAL Hx Musculoskeletal Disorders: Yes Hx Arthritis: Yes - GASTROINTESTINAL Hx Gastrointestinal Disorders: No - GENITOURINARY/GYNECOLOGICAL Hx Genitourinary Disorders: No - PSYCHIATRIC Hx Psychophysiologic Disorder: Yes Hx Anxiety: Yes Hx Depression: Yes Hx Substance Use: No - SURGICAL HISTORY Hx Surgeries: Yes (colonoscopy) - ANESTHESIA Hx Anesthesia: No Meds Home Medications: Home Medication List Medication Instructions Recorded Confirmed Type Aspirin 81 mg PO DAILY 30 Days #30 tab.chew 07/16/18 Rx Allergies/Adverse Reactions: Allergies Allergy/AdvReac Type Severity Reaction Status Date / Time No Known Allergies Allergy Verified 12/13/17 21:11 Physical Exam - Constitutional Appears: Well, No Acute Distress - Head Exam Head Exam: ATRAUMATIC, NORMAL INSPECTION, NORMOCEPHALIC - Eye Exam Eye Exam: EOMI, Normal appearance, PERRL Pupil Exam: NORMAL ACCOMODATION, PERRL - ENT Exam ENT Exam: Mucous Membranes Moist, Normal Exam - Neck Exam Neck exam: Positive for: Normal Inspection - Respiratory Exam Respiratory Exam: Clear to Auscultation Bilateral, NORMAL BREATHING PATTERN. absent: Rales, Rhonchi, Wheezes - Cardiovascular Exam Cardiovascular Exam: REGULAR RHYTHM, +S1, +S2. absent: JVD, RRR, Rubs - GI/Abdominal Exam GI & Abdominal Exam: Normal Bowel Sounds, Soft. absent: Tenderness Additional comments: obese - Extremities Exam Extremities exam: Positive for: normal capillary refill, normal inspection, pe jovani pulses present - Back Exam Back exam: NORMAL INSPECTION. absent: tenderness - Neurological Exam Neurological exam: Alert, CN II-XII Intact, Oriented x3, Reflexes Normal - Psychiatric Exam Psychiatric exam: Anxious, Depressed - Skin Skin Exam: Dry, Intact, Normal Color, Warm Results - Vital Signs Recent Vital Signs: Last Vital Signs Temp 97.9 F 07/15/18 15:27 Pulse 75 07/15/18 16:08 Resp 18 07/15/18 16:08 BP 108/65 07/15/18 16:08 Pulse Ox 96 07/15/18 16:08 - Labs Result Diagrams: 07/15/18 15:30 07/15/18 15:30 Labs: Laboratory Results - last 24 hr 07/15/18 07/15/18 07/15/18 10:33 15:30 15:30 WBC 12.8 H D RBC 4.31 Hgb 13.6 L Hct 39.6 L MCV 91.9 MCH 31.6 MCHC 34.3 RDW 13.5 Plt Count 365 MPV 9.5 Neut % (Auto) 76.2 H Lymph % (Auto) 15.3 L Bremer % (Auto) 7.0 H Eos % (Auto) 1.4 L Baso % (Auto) 0.1 Lymph # (Auto) 2.0 Bremer # (Auto) 0.9 H Eos # (Auto) 0.2 Baso # (Auto) 0.01 Absolute Neuts (auto) 9.73 H D-Dimer, Quantitative Sodium 141 Potassium 3.7 Chloride 104 Carbon Dioxide 26 Anion Gap 14 BUN 31 H Creatinine 1.0 Est GFR ( Amer) > 60 Est GFR (Non-Af Amer) > 60 POC Glucose (mg/dL) Random Glucose 120 H Calcium 9.4 Total Bilirubin 0.5 AST 28 ALT 15 Alkaline Phosphatase 72 Lactate Dehydrogenase 326 L Total Creatine Kinase 80 Troponin I < 0.01 NT-Pro-B Natriuret Pep 26.9 Total Protein 7.3 Albumin 4.4 Globulin 2.8 Albumin/Globulin Ratio 1.6 Alcohol, Quantitative < 10 07/15/18 07/15/18 15:30 15:54 WBC RBC Hgb Hct MCV MCH MCHC RDW Plt Count MPV Neut % (Auto) Lymph % (Auto) Bremer % (Auto) Eos % (Auto) Baso % (Auto) Lymph # (Auto) Bremer # (Auto) Eos # (Auto) Baso # (Auto) Absolute Neuts (auto) D-Dimer, Quantitative 208 Sodium Potassium Chloride Carbon Dioxide Anion Gap BUN Creatinine Est GFR ( Amer) Est GFR (Non-Af Amer) POC Glucose (mg/dL) 129 H Random Glucose Calcium Total Bilirubin AST ALT Alkaline Phosphatase Lactate Dehydrogenase Total Creatine Kinase Troponin I NT-Pro-B Natriuret Pep Total Protein Albumin Globulin Albumin/Globulin Ratio Alcohol, Quantitative Assessment & Plan - Assessment and Plan (Free Text) Assessment: 53 y/o male with PMH of HTN, DM2, peripheral neuropathy, depression, arthritis, drug abuse presents to the ED with left sided chest pain. Admitted for chest pain r/o ACS Plan: Left sided chest pain r/o ACS: -EKG: NSR @82 with RBBB. unchanged from prior -CXR: NAD -trop negative x1. continue to trend -f/u CT head -orthostatic vitals -cardiology consulted Dr Malave HTN: -continue home med HCTZ, lisinopril DM with neuropathy: -continue home med metformin, gabapentin, vitamin B12 -accuchecks -A1C HLD: -lipid profile -continue home med h/o polysubstance abuse: -UDS h/o arthritis: -tylenol prn h/o psychatric disorder: -continue home meds trazodone, xanax, zoloft, lamictal -psych consulted Dr Platt PPX: -DVT: SCD -GI: protonix -HHD -PT eval/treat -certified social workers in health care consult Case reviewed and plan discussed with attending Dr Jhoana Woodruff, DO <Micki Ely - Last Filed: 07/16/18 16:27> Results - Vital Signs Recent Vital Signs: Last Vital Signs Temp 97.8 F 07/16/18 12:00 Pulse 64 07/16/18 12:00 Resp 20 07/16/18 12:00 BP 146/97 H 07/16/18 12:00 Pulse Ox 94 L 07/16/18 06:00 - Labs Result Diagrams: 07/16/18 03:30 07/16/18 03:30 Labs: Laboratory Results - last 24 hr 07/15/18 07/15/18 07/15/18 10:33 17:20 21:02 WBC RBC Hgb Hct MCV MCH MCHC RDW Plt Count MPV Neut % (Auto) Lymph % (Auto) Bremer % (Auto) Eos % (Auto) Baso % (Auto) Lymph # (Auto) Bremer # (Auto) Eos # (Auto) Baso # (Auto) Absolute Neuts (auto) Sodium Potassium Chloride Carbon Dioxide Anion Gap BUN Creatinine Est GFR ( Amer) Est GFR (Non-Af Amer) POC Glucose (mg/dL) 180 H Random Glucose Calcium Phosphorus Magnesium Total Bilirubin AST ALT Alkaline Phosphatase Troponin I Total Protein Albumin Globulin Albumin/Globulin Ratio Urine Opiates Screen Negative Urine Methadone Screen Negative Ur Barbiturates Screen Negative Ur Phencyclidine Scrn Negative Ur Amphetamines Screen Negative U Benzodiazepines Scrn Negative U Oth Cocaine Metabols Positive H U Cannabinoids Screen Negative Alcohol, Quantitative < 10 07/15/18 07/16/18 07/16/18 21:23 03:30 03:30 WBC 10.5 RBC 4.18 Hgb 13.0 L Hct 38.5 L MCV 92.1 MCH 31.1 MCHC 33.8 RDW 13.5 Plt Count 306 MPV 9.1 Neut % (Auto) 66.7 Lymph % (Auto) 22.8 Bremer % (Auto) 8.1 H Eos % (Auto) 2.2 Baso % (Auto) 0.2 Lymph # (Auto) 2.4 Bremer # (Auto) 0.9 H Eos # (Auto) 0.2 Baso # (Auto) 0.02 Absolute Neuts (auto) 6.98 H Sodium 137 Potassium 3.6 Chloride 102 Carbon Dioxide 26 Anion Gap 13 BUN 28 H Creatinine 1.1 Est GFR ( Amer) > 60 Est GFR (Non-Af Amer) > 60 POC Glucose (mg/dL) Random Glucose 132 H Calcium 9.0 Phosphorus 4.5 Magnesium 1.9 Total Bilirubin 0.5 AST 21 ALT 23 Alkaline Phosphatase 72 Troponin I < 0.01 < 0.01 Total Protein 6.8 Albumin 4.1 Globulin 2.7 Albumin/Globulin Ratio 1.5 Urine Opiates Screen Urine Methadone Screen Ur Barbiturates Screen Ur Phencyclidine Scrn Ur Amphetamines Screen U Benzodiazepines Scrn U Oth Cocaine Metabols U Cannabinoids Screen Alcohol, Quantitative 07/16/18 07/16/18 07:28 11:30 WBC RBC Hgb Hct MCV MCH MCHC RDW Plt Count MPV Neut % (Auto) Lymph % (Auto) Bremer % (Auto) Eos % (Auto) Baso % (Auto) Lymph # (Auto) Bremer # (Auto) Eos # (Auto) Baso # (Auto) Absolute Neuts (auto) Sodium Potassium Chloride Carbon Dioxide Anion Gap BUN Creatinine Est GFR ( Amer) Est GFR (Non-Af Amer) POC Glucose (mg/dL) 133 H 130 H Random Glucose Calcium Phosphorus Magnesium Total Bilirubin AST ALT Alkaline Phosphatase Troponin I Total Protein Albumin Globulin Albumin/Globulin Ratio Urine Opiates Screen Urine Methadone Screen Ur Barbiturates Screen Ur Phencyclidine Scrn Ur Amphetamines Screen U Benzodiazepines Scrn U Oth Cocaine Metabols U Cannabinoids Screen Alcohol, Quantitative Attending/Attestation - Attestation I have personally seen and examined this patient.: Yes I have fully participated in the care of the patient.: Yes I have reviewed all pertinent clinical information: Yes Notes (Text): Attending note; Patient seen and examined with resident in ER. Patient is alert and awake. Complaining of nonspecific chest pain. Complaining of anxiety and dizziness. Currently not in any acute distress. Tolerating diet. Patient is a 53-year-old male with PMH of HTN, DM2, peripheral neuropathy, depression, arthritis, drug abuse presents to the ED with left sided chest pain. 1. Left-sided chest pain; patient has pain on and off. Currently not in any acute distress. EKG showed no acute changes. Cardiac enzymes x1 negative. Admit to telemetry. Cardiology evaluation requested. 2. Hypertension; monitor blood pressure closely. Patient is on hydrochlorthiazide and lisinopril. 3. Diabetes; continue regular insulin sliding scale, metformin. 4. Diabetic neuropathy; poorly controlled diabetes. Continue Neurontin. 5. Severe anxiety; patient is on multiple psychiatric medication. Continue home medication trazodone, Xanax, Zoloft and Lamictal. Patient is strongly advised to follow-up with primary psychiatrist in decrease the medications. workers compensation paralegal evaluation requested for home situation. Orthostatic blood pressure ordered. PT evaluation requested. Upon discharge the patient will follow up with PMD Dr. Bruno Leroy.
[2018-07-15 17:56] LABS: BENZODIAZEPINES, UR NEGATIVE (NEGATIVE)
[2018-07-15 18:06] LABS: BARBITURATES, UR NEGATIVE (NEGATIVE); OPIATES, UR NEGATIVE (NEGATIVE); PHENCYCLIDINE, UR NEGATIVE (NEGATIVE)
--- NOTE | 2018-07-15 18:13 | CARD ---
APPROVED REPORT Date of service: 07/15/2018 EKG Measurement Heart [id number] <Conclusion> Normal sinus rhythm Right bundle branch block Abnormal ECG
--- NOTE | 2018-07-15 18:55 | CT ---
Date of service: 07/15/2018 PROCEDURE: CT HEAD WITHOUT CONTRAST. HISTORY: dizziness COMPARISON: None available. TECHNIQUE: Axial computed tomography images were obtained through the head/brain without intravenous contrast. Radiation dose: Total exam DLP = 1830.31 mGy-cm. This CT exam was performed using one or more of the following dose reduction techniques: Automated exposure control, adjustment of the mA and/or kV according to patient size, and/or use of iterative reconstruction technique. FINDINGS: HEMORRHAGE: No intracranial hemorrhage. BRAIN: There are mild chronic microangiopathic changes. There is a 2.3 x 1.9 cm CSF density left paramedian retro cerebellar extra-axial mass with scalloping of the overlying occipital bone. There is no mass effect or abnormal extra-axial fluid collection. There is no territorial infarction. The midline sagittal structures are normal. VENTRICLES: The ventricles are normal in size, shape and configuration. CALVARIUM: There is no calvarial fracture or extracranial soft tissue swelling. PARANASAL SINUSES: There is moderate scattered mucosal thickening in the ethmoid air cells and mild mucosal thickening in the left maxillary sinus with a large retention cyst/polyp. MASTOID AIR CELLS: Predominantly clear. OTHER FINDINGS: None. IMPRESSION: No acute intracranial abnormality. 2.3 x 1.9 cm left paramedian retro cerebellar presumable arachnoid cyst.
[2018-07-15] MEDS: Insulin Reg-LOW-Coverage SC SCH (22:43)
[2018-07-15 23:52] VITALS: RESP 20
[2018-07-16 03:44] LABS: BASO # 0.02 K/mm3 (0.0-2.0); BASO % 0.2 % (0.0-3.0); EOS # 0.2 (0.0-0.7); EOS % 2.2 % (1.5-5.0); LYMPH # 2.4 (1.2-3.4); LYMPH % 22.8 % (22.0-35.0); MEAN CELL VOLUME 92.1 fl (80.0-105.0); MEAN CORPUSCULAR HEMOGLOBIN 31.1 pg (25.0-35.0); MEAN CORPUSCULAR HGB CONC 33.8 g/dl (31.0-37.0); MEAN PLATELET VOLUME 9.1 fl (7.0-11.0); MONO # 0.9 (0.1-0.6); MONO % 8.1 % (1.0-6.0); RBC 4.18 10^6/uL (3.5-6.1); RED CELL DISTRIBUTION WIDTH 13.5 % (11.5-14.5); WHITE BLOOD COUNT 10.5 10^3/uL (4.5-11.0)
[2018-07-16 03:58] LABS: ALB/GLOB RATIO 1.5 (1.1-1.8); ALBUMIN 4.1 g/dL (3.0-4.8); ALT/SGPT 23 U/L (7-56); AST/SGOT 21 U/L (17-59); BLOOD UREA NITROGEN 28 mg/dL (7-21); GFR NON-AFRICAN AMERICAN > 60
[2018-07-16 04:00] LABS: TROPONIN I < 0.01 ng/mL
[2018-07-16 07:42] VITALS: O2SAT 94
[2018-07-16] MEDS: Insulin Reg-LOW-Coverage SC SCH ×2 (07:57→11:30)
[2018-07-16 12:23] VITALS: BP 146/97; PULSE 64; TEMP 97.8
--- NOTE | 2018-07-16 13:20 | CON ---
DATE OF CONSULTATION: 07/16/2018 CARDIOLOGY CONSULTATION HISTORY: The patient is a 53-year-old male, who presents with focal pleuritic-like chest pain. He also complains of weakness. PAST MEDICAL HISTORY: The patient's past medical history is notable for diabetes mellitus, hypertension, and probable COPD. The patient is an active smoker for many years. He also complains of family history for CAD. No previous myocardial infarction. SOCIAL HISTORY: He is an active smoker. REVIEW OF SYSTEMS: A 14-point review of systems is reviewed in detail. No additional symptoms are noted. PHYSICAL EXAMINATION: VITAL SIGNS: Blood pressure 125/80, the heart rate is in the 60s. NECK: Negative JVD. LUNGS: Without rales. CARDIAC: Heart rate S1, S2. EXTREMITIES: Without edema. LABORATORY DATA: Laboratories revealed an EKG that is within normal limits. Troponins are negative x3. The glucose is 132. The hemoglobin is 13. IMPRESSION: 1. Pleuritic-like chest pain. 2. Probable chronic obstructive pulmonary disease. 3. Diabetes mellitus. 4. Hypertension. 5. Positive family history for coronary artery disease. PLAN: Given these findings, there is no evidence for acute coronary syndrome. I have discussed stop smoking and the necessity to stop smoking with the patient in detail. The patient does not seem interested. We will arrange for a stress test, which can be done as an outpatient. Olivier Malave MD
--- NOTE | 2018-07-16 14:53 | CP.PCM.DIS ---
<Juvenal Woodruff - Last Filed: 07/17/18 14:37> Provider - Provider Date of Admission: 07/15/18 16:23 Attending physician: Micki Ely MD Consults: 07/15/18 17:16 [facility] [Case Management Referral] Routine Comment: Physician Instructions: Reason For Exam: homeless? out of friend's house Reason for Referral: Discharge Planning 07/15/18 17:17 Cardiology Consult Routine Comment: Consulting Provider: Olivier Malave Consulting Physician: Olivier Malave Reason for Consult: chest pain Psychiatry Consult Routine Comment: Consulting Provider: Rachelle Platt Consulting Physician: Rachelle Platt Reason for Consult: depression, anxiety, substance use, multiple psych meds Time Spent in preparation of Discharge (in minutes): 45 Hospital Course - Lab Results Lab Results: Most Recent Lab Values WBC 10.5 10^3/uL (4.5-11.0) 07/16/18 03:30 RBC 4.18 10^6/uL (3.5-6.1) 07/16/18 03:30 Hgb 13.0 g/dL (14.0-18.0) L 07/16/18 03:30 Hct 38.5 % (42.0-52.0) L 07/16/18 03:30 MCV 92.1 fl (80.0-105.0) 07/16/18 03:30 MCH 31.1 pg (25.0-35.0) 07/16/18 03:30 MCHC 33.8 g/dl (31.0-37.0) 07/16/18 03:30 RDW 13.5 % (11.5-14.5) 07/16/18 03:30 Plt Count 306 10^3/uL (120.0-450.0) 07/16/18 03:30 MPV 9.1 fl (7.0-11.0) 07/16/18 03:30 Neut % (Auto) 66.7 % (50.0-68.0) 07/16/18 03:30 Lymph % (Auto) 22.8 % (22.0-35.0) 07/16/18 03:30 [place] % (Auto) 8.1 % (1.0-6.0) H 07/16/18 03:30 Eos % (Auto) 2.2 % (1.5-5.0) 07/16/18 03:30 Baso % (Auto) 0.2 % (0.0-3.0) 07/16/18 03:30 Lymph # (Auto) 2.4 (1.2-3.4) 07/16/18 03:30 [place] # (Auto) 0.9 (0.1-0.6) H 07/16/18 03:30 Eos # (Auto) 0.2 (0.0-0.7) 07/16/18 03:30 Baso # (Auto) 0.02 K/mm3 (0.0-2.0) 07/16/18 03:30 Absolute Neuts (auto) 6.98 (1.4-6.5) H 07/16/18 03:30 D-Dimer, Quantitative 208 ng/mlDDU (0-243) 07/15/18 15:30 Sodium 137 mmol/L (132-148) 07/16/18 03:30 Potassium 3.6 mmol/L (3.6-5.0) 07/16/18 03:30 Chloride 102 mmol/L (98-107) 07/16/18 03:30 Carbon Dioxide 26 mmol/L (21-33) 07/16/18 03:30 Anion Gap 13 (10-20) 07/16/18 03:30 BUN 28 mg/dL (7-21) H 07/16/18 03:30 Creatinine 1.1 mg/dl (0.8-1.5) 07/16/18 03:30 Est GFR ( Amer) > 60 07/16/18 03:30 Est GFR (Non-Af Amer) > 60 07/16/18 03:30 POC Glucose (mg/dL) 130 mg/dL (65-110) H 07/16/18 11:30 Random Glucose 132 mg/dL (70-110) H 07/16/18 03:30 Calcium 9.0 mg/dL (8.4-10.5) 07/16/18 03:30 Phosphorus 4.5 mg/dL (2.5-4.5) 07/16/18 03:30 Magnesium 1.9 mg/dL (1.7-2.2) 07/16/18 03:30 Total Bilirubin 0.5 mg/dL (0.2-1.3) 07/16/18 03:30 AST 21 U/L (17-59) 07/16/18 03:30 ALT 23 U/L (7-56) 07/16/18 03:30 Alkaline Phosphatase 72 U/L (38-126) 07/16/18 03:30 Lactate Dehydrogenase 326 U/L (333-699) L 07/15/18 15:30 Total Creatine Kinase 80 U/L (35-230) 07/15/18 15:30 Troponin I < 0.01 ng/mL 07/16/18 03:30 NT-Pro-B Natriuret Pep 26.9 pg/mL (0-450) 07/15/18 15:30 Total Protein 6.8 g/dL (5.8-8.3) 07/16/18 03:30 Albumin 4.1 g/dL (3.0-4.8) 07/16/18 03:30 Globulin 2.7 gm/dL 07/16/18 03:30 Albumin/Globulin Ratio 1.5 (1.1-1.8) 07/16/18 03:30 Urine Opiates Screen Negative (NEGATIVE) 07/15/18 17:20 Urine Methadone Screen Negative (NEGATIVE) 07/15/18 17:20 Ur Barbiturates Screen Negative (NEGATIVE) 07/15/18 17:20 Ur Phencyclidine Scrn Negative (NEGATIVE) 07/15/18 17:20 Ur Amphetamines Screen Negative (NEGATIVE) 07/15/18 17:20 U Benzodiazepines Scrn Negative (NEGATIVE) 07/15/18 17:20 U Oth Cocaine Metabols Positive (NEGATIVE) H 07/15/18 17:20 U Cannabinoids Screen Negative (NEGATIVE) 07/15/18 17:20 Alcohol, Quantitative < 10 mg/dL (0-10) 07/15/18 10:33 - Hospital Course Hospital Course: 53 y/o male with PMH of HTN, DM2, peripheral neuropathy, depression, arthritis, drug abuse presented to the ED with left sided chest pain x6-8 month. Admitted for chest pain r/o ACS. EKG: NSR @82 with RBBB. unchanged from prior. CXR: NAD, trop negative x3, orthostatic vitals normal. UDS positive for cocaine. Patient has HTN/HLD home med HCTZ, lisinopril, lipitor continued. Patient has DM with neuropathy, home med metformin, gabapentin, vitamin B12. He has h/o psychatric disorder, home meds trazodone, xanax, zoloft, lamictal. Patient refused to be seen by psychiatric in the hospital. He prefers to f/u with his own psych outpatient. Patient was seen by cardiaologist who recommended cardiac stress test as outpatient. Patient was counseled to stop cocaine/other drug use, stop smoking repeatedly. Patient is hemodynamically stable, afebrile, no leukocytosis and clinically stable for home discharge today. Discharge Exam - Head Exam Head Exam: ATRAUMATIC, NORMAL INSPECTION, NORMOCEPHALIC - Eye Exam Eye Exam: EOMI, Normal appearance, PERRL Pupil Exam: NORMAL ACCOMODATION, PERRL - ENT Exam ENT Exam: Mucous Membranes Moist - Neck Exam Neck exam: Normal Inspection - Respiratory Exam Respiratory Exam: Clear to PA & Lateral, NORMAL BREATHING PATTERN - Cardiovascular Exam Cardiovascular Exam: REGULAR RHYTHM, +S1, +S2 - GI/Abdominal Exam GI & Abdominal Exam: Normal Bowel Sounds, Soft - Extremities Exam Extremities exam: normal capillary refill, pedal pulses present - Back Exam Back exam: FULL ROM - Neurological Exam Neurological exam: Alert, CN II-XII Intact, Normal Gait, Oriented x3 - Psychiatric Exam Psychiatric exam: Anxious, Depressed - Skin Skin Exam: Dry, Intact, Normal Color, Warm Discharge Plan - Discharge Medications Prescriptions: Aspirin 81 mg PO DAILY 30 Days #30 tab.chew - Follow Up Plan Condition: FAIR Disposition: HOME/ ROUTINE Instructions: Anxiety, Adult (DC), Chest Pain (DC) Additional Instructions: Follow up with Dr. Malave for stress test on August 06 The cat scan showed arachnoid cysts, please follow up with primary care doctor for repeat CT in a year. It's extremely important that you stop using controlled substance. Please follow up with primary care doctor, Dr. Rehman in 3-5 days. Resume your home medications Please return if the symptoms returns or call 911. Referrals: Samantha Saravia MD [Medical Doctor] - Olivier Malave MD [Staff Provider] - <Micki Ely - Last Filed: 07/17/18 17:11> Provider - Provider Date of Admission: 07/15/18 16:23 Attending physician: Micki Ely MD Consults: 07/15/18 17:16 [facility] [Case Management Referral] Routine Comment: Physician Instructions: Reason For Exam: homeless? out of friend's house Reason for Referral: Discharge Planning 07/15/18 17:17 Cardiology Consult Routine Comment: Consulting Provider: Olivier Malave Consulting Physician: Olivier Malave Reason for Consult: chest pain Psychiatry Consult Routine Comment: Consulting Provider: Rachelle Platt Consulting Physician: Rachelle Platt Reason for Consult: depression, anxiety, substance use, multiple psych meds Hospital Course - Lab Results Lab Results: Most Recent Lab Values WBC 10.5 10^3/uL (4.5-11.0) 07/16/18 03:30 RBC 4.18 10^6/uL (3.5-6.1) 07/16/18 03:30 Hgb 13.0 g/dL (14.0-18.0) L 07/16/18 03:30 Hct 38.5 % (42.0-52.0) L 07/16/18 03:30 MCV 92.1 fl (80.0-105.0) 07/16/18 03:30 MCH 31.1 pg (25.0-35.0) 07/16/18 03:30 MCHC 33.8 g/dl (31.0-37.0) 07/16/18 03:30 RDW 13.5 % (11.5-14.5) 07/16/18 03:30 Plt Count 306 10^3/uL (120.0-450.0) 07/16/18 03:30 MPV 9.1 fl (7.0-11.0) 07/16/18 03:30 Neut % (Auto) 66.7 % (50.0-68.0) 07/16/18 03:30 Lymph % (Auto) 22.8 % (22.0-35.0) 07/16/18 03:30 [place] % (Auto) 8.1 % (1.0-6.0) H 07/16/18 03:30 Eos % (Auto) 2.2 % (1.5-5.0) 07/16/18 03:30 Baso % (Auto) 0.2 % (0.0-3.0) 07/16/18 03:30 Lymph # (Auto) 2.4 (1.2-3.4) 07/16/18 03:30 [place] # (Auto) 0.9 (0.1-0.6) H 07/16/18 03:30 Eos # (Auto) 0.2 (0.0-0.7) 07/16/18 03:30 Baso # (Auto) 0.02 K/mm3 (0.0-2.0) 07/16/18 03:30 Absolute Neuts (auto) 6.98 (1.4-6.5) H 07/16/18 03:30 D-Dimer, Quantitative 208 ng/mlDDU (0-243) 07/15/18 15:30 Sodium 137 mmol/L (132-148) 07/16/18 03:30 Potassium 3.6 mmol/L (3.6-5.0) 07/16/18 03:30 Chloride 102 mmol/L (98-107) 07/16/18 03:30 Carbon Dioxide 26 mmol/L (21-33) 07/16/18 03:30 Anion Gap 13 (10-20) 07/16/18 03:30 BUN 28 mg/dL (7-21) H 07/16/18 03:30 Creatinine 1.1 mg/dl (0.8-1.5) 07/16/18 03:30 Est GFR ( Amer) > 60 07/16/18 03:30 Est GFR (Non-Af Amer) > 60 07/16/18 03:30 POC Glucose (mg/dL) 130 mg/dL (65-110) H 07/16/18 11:30 Random Glucose 132 mg/dL (70-110) H 07/16/18 03:30 Calcium 9.0 mg/dL (8.4-10.5) 07/16/18 03:30 Phosphorus 4.5 mg/dL (2.5-4.5) 07/16/18 03:30 Magnesium 1.9 mg/dL (1.7-2.2) 07/16/18 03:30 Total Bilirubin 0.5 mg/dL (0.2-1.3) 07/16/18 03:30 AST 21 U/L (17-59) 07/16/18 03:30 ALT 23 U/L (7-56) 07/16/18 03:30 Alkaline Phosphatase 72 U/L (38-126) 07/16/18 03:30 Lactate Dehydrogenase 326 U/L (333-699) L 07/15/18 15:30 Total Creatine Kinase 80 U/L (35-230) 07/15/18 15:30 Troponin I < 0.01 ng/mL 07/16/18 03:30 NT-Pro-B Natriuret Pep 26.9 pg/mL (0-450) 07/15/18 15:30 Total Protein 6.8 g/dL (5.8-8.3) 07/16/18 03:30 Albumin 4.1 g/dL (3.0-4.8) 07/16/18 03:30 Globulin 2.7 gm/dL 07/16/18 03:30 Albumin/Globulin Ratio 1.5 (1.1-1.8) 07/16/18 03:30 Urine Opiates Screen Negative (NEGATIVE) 07/15/18 17:20 Urine Methadone Screen Negative (NEGATIVE) 07/15/18 17:20 Ur Barbiturates Screen Negative (NEGATIVE) 07/15/18 17:20 Ur Phencyclidine Scrn Negative (NEGATIVE) 07/15/18 17:20 Ur Amphetamines Screen Negative (NEGATIVE) 07/15/18 17:20 U Benzodiazepines Scrn Negative (NEGATIVE) 07/15/18 17:20 U Oth Cocaine Metabols Positive (NEGATIVE) H 07/15/18 17:20 U Cannabinoids Screen Negative (NEGATIVE) 07/15/18 17:20 Alcohol, Quantitative < 10 mg/dL (0-10) 07/15/18 10:33 Attending/Attestation - Attestation I have personally seen and examined this patient.: Yes I have fully participated in the care of the patient.: Yes I have reviewed all pertinent clinical information, including history, physical exam and plan: Yes Notes (Text): 07/17/18 17:08 Attending note; Patient seen and examined with resident. Patient is alert and awake. Currently denies any chest pain. Complaining of tiredness. Complaining of anxiety and dizziness. Currently not in any acute distress. Tolerating diet. Patient is a 53-year-old male with PMH of HTN, DM2, peripheral neuropathy, depression, arthritis, drug abuse presents to the ED with left sided chest pain. 1. Left-sided chest pain; resolved. Cardiac enzymes x3 negative. Cardiology evaluation appreciated. Outpatient stress test arranged. 2. Hypertension; Patient is on hydrochlorthiazide and lisinopril. 3. Diabetes; continue metformin. 4. Diabetic neuropathy; poorly controlled diabetes. Continue Neurontin. 5. Severe anxiety; patient is on multiple psychiatric medication. Continue home medication trazodone, Xanax, Zoloft and Lamictal. Psychiatric evaluation appreciated. Patient is advised to follow-up with primary psychiatrist and adjust medications. Physical therapy evaluation appreciated. Patient will be discharged home today. Upon discharge the patient will follow up with PMD Dr. Bruno Leroy.
--- NOTE | 2018-07-16 18:06 | CON ---
DATE OF CONSULTATION: 07/16/2018 HISTORY OF PRESENT ILLNESS: In short, the patient is a 53-year-old male with reported history of substance abuse as well as mental illness. The patient was admitted on the medical side for chest pain. Psych consult was called because the patient has a history of mental illness. The patient was seen and examined today. The patient was not willing to participate in interview, was giving yes/no answers. The patient reported that he is compliant with his psychotropic medications, which are listed in his chart. The patient reported that he has a followup appointment with his psychiatrist, who practiced at [facility]. Followup appointment is on 07/21. The patient reported that he does not hear any voices. He is not seeing any things. The patient denied thoughts of harming himself or others. PHYSICAL EXAMINATION: VITAL SIGNS: Reviewed. Temperature 97.8, pulse 64, blood pressure 146/97, respirations 20, oxygen saturation is 94. MEDICATIONS: Reviewed. The patient is on Tylenol, vitamin B12, Neurontin, hydrochlorothiazide, Humulin, Lamictal, Ativan, Glucophage, Zoloft, trazodone. LABORATORY DATA: Labs reviewed. Chemistry reviewed. Toxicology reviewed. Cocaine positive in urine. The patient has no reasonable explanation why cocaine is positive. The patient denied using any drugs. MENTAL STATUS EXAMINATION: The patient presented to be alert and oriented, but disengaged. Does not want to talk to this adjusto writer operator. The patient described his mood as okay. Affect was irritable and constricted. Thought process coherent and goal-directed. Thought content, the patient denied visual, auditory, or tactile hallucinations. Denied paranoid ideation. The patient denied thoughts of harming himself or others, denied intent or plan. Insight and judgment seemed to be fair. Impulses are well controlled. IMPRESSION: As per history, depression and anxiety, also rule out cocaine-induced chest pain, cocaine abuse. PLAN: The patient does not exhibit any aggressive or agitated behavior. The patient denied thoughts of harming himself or others. The patient denied feeling hopeless or helpless. The patient poses no imminent danger to self or others. The patient has followup appointment with his psychiatrist at [facility] on 07/21. The patient has enough medication at home. This adjusto writer operator will sign off. Should you have any questions give me a call back. Discussed with Dr. Ely. Rachelle Platt MD
--- NOTE | 2018-07-16 18:31 | CARD ---
APPROVED REPORT Date of service: 07/16/2018 EXAM: Two-dimensional and M-mode echocardiogram with Doppler and color Doppler. INDICATION Chest Pain 2D DIMENSIONS Left Atrium (2D)3.4 (1.6-4.0cm)IVSd1.5 (0.7-1.1cm) LVDd4.9 (3.9-5.9cm)PWd1.3 (0.7-1.1cm) LVDs3.5 (2.5-4.0cm)FS (%) 28.7 % LVEF (%)55.0 (>50%) M-Mode DIMENSIONS Aortic Root3.30 (2.2-3.7cm)Aortic Cusp Exc.2.10 (1.5-2.0cm) Aortic Valve AoV Peak Adastkto713.0cm/Celine Peak GR.8mmHg Mitral Valve MV E Kxxaoapd48.2cm/sMV A Giqbzewz570.0cm/sE/A ratio0.6 TDI E/Lateral E'0.0E/Medial E'0.0 Tricuspid Valve TR Peak Wekqtknd720dy/sRAP [id number] Peak Gr.16mmHg [id number] LEFT VENTRICLE The left ventricle is normal size. There is mild concentric left ventricular hypertrophy. The left ventricular function is normal. The left ventricular ejection fraction is within the normal range. There is normal LV segmental wall motion. Transmitral Doppler flow pattern is Grade I-abnormal relaxation pattern. RIGHT VENTRICLE The right ventricle is normal size. There is normal right ventricular wall thickness. The right ventricular systolic function is normal. ATRIA The left atrium size is normal. The right atrium size is normal. AORTIC VALVE The aortic valve is not well visualized. There is mild to moderate aortic regurgitation. There is no aortic valvular stenosis. MITRAL VALVE The mitral valve is not well visualized. There is no mitral valve regurgitation noted. There is no mitral valve stenosis. There is no evidence of mitral valve prolapse. TRICUSPID VALVE The tricuspid valve is normal in structure. There is no tricuspid valve regurgitation noted. PULMONIC VALVE There is mild pulmonic valvular regurgitation. GREAT VESSELS The aortic root is normal in size. The IVC is normal in size and collapses >50% with inspiration. PERICARDIAL EFFUSION There is no pericardial effusion. <Conclusion> There is mild concentric left ventricular hypertrophy. The left ventricular function is normal. The left ventricular ejection fraction is within the normal range. There is normal LV segmental wall motion. Transmitral Doppler flow pattern is Grade I-abnormal relaxation pattern. There is mild to moderate aortic regurgitation. There is mild pulmonic valvular regurgitation.
== END 2018-07-16 16:47 | disposition home or self-care (01) ==
LOC: ED 14:24 → ERH 16:23 → 2RNO 18:27
PROVIDERS: ADMIT Internal Medicine; ATTEND Internal Medicine
DX: R07.81 Pleurodynia (principal); J44.9 Chronic obstructive pulmonary disease, unspecified; E11.42 Type 2 diabetes mellitus with diabetic polyneuropathy; E78.5 Hyperlipidemia, unspecified; F17.210 Nicotine dependence, cigarettes, uncomplicated; F41.9 Anxiety disorder, unspecified; I10 Essential (primary) hypertension; I45.10 Unspecified right bundle-branch block; Z79.82 Long term (current) use of aspirin; Z82.49 Family history of ischemic heart disease and other diseases of the circulatory system; Z83.3 Family history of diabetes mellitus; F14.10 Cocaine abuse, uncomplicated
CPT/HCPCS: 36415; 70450; 71045; 80053; 80320; 80324; 80345; 80346; 80349; 80353; 80358; 80361; 82550; 82948; 83615; 83735; 83880; 83992; 84100; 84484; 85025; 85378; 93005; 93306; 96360; 96374; 97162; 97530; 99285; G0378; G8978; G8979; G8980; J2405; J7040